=== PATIENT | male | born 2000 | race Caucasian/White ===

== ENCOUNTER 2023-12-21 21:26 | Observation (INO) | payer OTHER ==
[~2023-12-21] VITALS: Ht 182.9 cm; Wt 108.9 kg
[2023-12-21 21:54] VITALS: BP 138/104; PULSE 89; RESP 16; TEMP 98.6; O2SAT 99
[2023-12-21 23:02] LABS: APPEARANCE,URINE CLEAR (CLEAR); BILIRUBIN,URINE NEGATIVE (NEGATIVE); BLOOD, URINE NEGATIVE (NEGATIVE); COLOR,URINE YELLOW (YELLOW); LEUKOCYTE ESTERASE ,URINE NEGATIVE (NEGATIVE); NITRITE, URINE NEGATIVE (NEGATIVE); PROTEIN,URINE NEGATIVE (NEGATIVE); UGLUCOSE NEGATIVE (NEGATIVE); UROBILINOGEN,URINE 0.2 EU/dL (0.2 - 1)
[2023-12-22 01:50] LABS: BASOPHILS % (AUTO) 0.4 % (0.0-2.0); EOSINOPHILS # (AUTO) 0.1 K/uL (0-0.4); EOSINOPHILS % (AUTO) 1.7 % (0.0-4.0); HEMATOCRIT 43.2 % (36-52); HEMOGLOBIN 15.2 g/dL (12.0-18.0); LYMPHOCYTES # (AUTO) 1.6 K/uL (2.0-11.5); LYMPHOCYTES % (AUTO) 19.8 % (20.5-51.1); MEAN CORPUSCULAR HEMOGLOBIN 32 pg (27-31); MEAN CORPUSCULAR HGB CONC 35 g/dL (33-37); MEAN CORPUSCULAR VOLUME 89.6 fL (80-94); MONOCYTES # (AUTO) 0.7 K/uL (0.8-1.0); MONOCYTES % (AUTO) 8.3 % (1.7-9.3); NEUTROPHILS # (AUTO) 5.7 K/uL (1.8-7.7); NEUTROPHILS % (AUTO) 69.8 % (42.2-75.2); PLATELET COUNT (AUTO) 202 K/uL (140-450); RED BLOOD CELL COUNT(AUTO) 4.82 MIL/uL (4.20-6.10); RED CELL DISTRIBUTION WIDTH 13.8 % (11.6-13.7); WHITE BLOOD COUNT (AUTO) 8.2 K/uL (4.8-10.8)
[2023-12-22 02:13] LABS: ALBUMIN 3.7 g/dL (3.4-5.0); BILIRUBIN,DIRECT 0.1 mg/dL (0.0-0.3); POTASSIUM 3.2 mmol/L (3.5-5.1); TOTAL BILIRUBIN 0.5 mg/dL (0.0-1.0); TOTAL PROTEIN, SERUM 7.7 g/dL (6.4-8.2)
[2023-12-22 02:14] LABS: ANION GAP 13.8 (8-16); CALCIUM 8.7 mg/dL (8.5-10.1); CARBON DIOXIDE 26.4 mmol/L (21-32); CREATININE 1.2 mg/dL (0.6-1.3)
[2023-12-22] MEDS ORDERED: CEFEPIME 2,000 MG VIAL IV ONE (04:45)
[2023-12-22] MEDS: CEFEPIME 2,000 MG in DEXTROSE 5% 100 ML IV ONE (05:04)
[2023-12-22] MEDS ORDERED: OMEP20EC11 PO (05:07)
[2023-12-22] MEDS ORDERED: MAG SULF 2000 MG/WATER PREMIX 50 ML IV PRN (05:50)
[2023-12-22] MEDS ORDERED: HYDROcodone/APAP 5/325 MG 1 TAB TAB PO PRN (05:50)
[2023-12-22] MEDS ORDERED: MAGNESIUM OXIDE 400 MG TAB PO PRN (05:50)
[2023-12-22] MEDS ORDERED: ACETAMINOPHEN 325 MG TAB PO PRN (05:50)
[2023-12-22] MEDS: POTASSIUM CHLORIDE 10 MEQ TABER PO PRN (06:33)
[2023-12-22] MEDS: metroNIDAZOLE 500 MG/NS PREMIX 100 ML IV SCH (06:50)
[2023-12-22] MEDS: NACL 0.9% 1,000 ML IV SCH (06:50)
[2023-12-22] MEDS: ONDANSETRON 4 MG/2 ML VIAL IVP PRN (08:53)
[2023-12-22] MEDS: MORPHINE SULFATE 4 MG/ML SYR IVP PRN (08:53)
[2023-12-22 15:26] LABS: BASOPHILS % (AUTO) 0.7 % (0.0-2.0); EOSINOPHILS # (AUTO) 0.2 K/uL (0-0.4); EOSINOPHILS % (AUTO) 2.7 % (0.0-4.0); HEMATOCRIT 40.7 % (36-52); HEMOGLOBIN 14.5 g/dL (12.0-18.0); LYMPHOCYTES % (AUTO) 31.9 % (20.5-51.1); MEAN CORPUSCULAR HEMOGLOBIN 32 pg (27-31); MEAN CORPUSCULAR HGB CONC 36 g/dL (33-37); MEAN CORPUSCULAR VOLUME 89.1 fL (80-94); MONOCYTES # (AUTO) 0.7 K/uL (0.8-1.0); MONOCYTES % (AUTO) 11.9 % (1.7-9.3); NEUTROPHILS # (AUTO) 3.3 K/uL (1.8-7.7); NEUTROPHILS % (AUTO) 52.8 % (42.2-75.2); PLATELET COUNT (AUTO) 182 K/uL (140-450); RED BLOOD CELL COUNT(AUTO) 4.57 MIL/uL (4.20-6.10); RED CELL DISTRIBUTION WIDTH 13.8 % (11.6-13.7); WHITE BLOOD COUNT (AUTO) 6.2 K/uL (4.8-10.8)
[2023-12-22 15:43] LABS: ANION GAP 11.9 (8-16); CALCIUM 8.5 mg/dL (8.5-10.1); CARBON DIOXIDE 25.8 mmol/L (21-32); POTASSIUM 3.7 mmol/L (3.5-5.1)
[2023-12-22 18:25] VITALS: BP 100/56; PULSE 69; RESP 18; TEMP 97.7; O2SAT 99
[2023-12-22 20:00] VITALS: PULSE 71; RESP 18; O2SAT 97
== END 2023-12-22 21:45 | disposition left against medical advice (07) ==
LOC: MED 21:26 → MMU 12-22 05:52 → MTU 12-22 09:15
PROVIDERS: ADMIT Internal Medicine; ATTEND Internal Medicine
DX: K35.80 Unspecified acute appendicitis (principal); E87.6 Hypokalemia; E66.9 Obesity, unspecified; Z68.32 Body mass index [BMI] 32.0-32.9, adult
CPT/HCPCS: 36415; 74176; 80048; 80076; 81003; 85025; 87040; 96365; 96366; 96367; 96372; 96375; 99285; G0378; J0692; J0696; J1644; J2270; J2405; J3490; J7060